=== PATIENT | male | born 1960 ===

== ENCOUNTER 2023-09-14 01:28 | Inpatient (IN) ==
[2023-09-14] MEDS ORDERED: Albuterol/Ipratropium NEB.SOL (2.5/0.5 MG) 3 ML NEB.SOLN INH PRN ×2 (03:12→07:01)
[2023-09-14] MEDS ORDERED: Albuterol (2.5 MG) 0.5 % CONC 0.5 ML NEB.SOLN INH PRN (03:13)
[2023-09-14 04:11] LABS: Resp Rate 12
[2023-09-14 04:14] LABS: PCO2 Arterial 31 mmHg (35-45); PO2 Arterial 139 mmHg (80-100)
[2023-09-14 04:40] LABS: ABS Lymphocytes 0.5 10^3/uL (1.0-4.8); ABS Monocytes 0.1 10^3/uL (0.0-1.1); ABS Neutrophils 7.1 10^3/uL (1.5-7.6); Hemoglobin 10.9 g/dL (13.2-16.3); Mean Corpuscular Hemoglobin 31.1 pg (27-33); Mean Corpuscular Hgb Conc 34.1 g/dL (31-36); Mean Corpuscular Volume 91.2 fL (80-97); Mean Platelet Volume 8.2 fL (7.5-11.2); Nucleated Red Blood Cells % 0.1 %/100WBC (0.0-0.8); Platelet Count 202 10^3/uL (150-450); Red Blood Count 3.51 10^6/uL (4.06-5.63); Red Cell Distribution Width 15.2 % (12-17); White Blood Count 7.7 10^3/uL (3.6-10.2)
[2023-09-14 04:57] LABS: Calcium 8.7 mg/dL (8.6-10.3); Creatinine, Serum 9.36 mg/dL (0.67-1.17); Magnesium 1.8 mg/dL (1.9-2.7); Potassium 5.9 mmol/L (3.5-5.0); eGFR CKD-EPI 5.8 (>60)
[2023-09-14] MEDS ORDERED: Albuterol/Ipratropium NEB.SOL (2.5/0.5 MG) 3 ML NEB.SOLN INH SCH ×3 (07:00→19:00)
[2023-09-14] MEDS: methylPREDNISolone SOD SUCC 40 mg/ml 1 ml VIAL IV SCH (08:11)
[2023-09-14] MEDS ORDERED: Albumin Human 25% 25 GM/100 ML IV PRN (10:24)
[2023-09-14 10:52] LABS: Hepatitis B Surface Antigen Nonreactive (Nonreactive)
[2023-09-14 11:09] LABS: Hepatitis B Surface Ab Immune (Immune)
[2023-09-14] MEDS: FLUTICAS/UMECLI/VILANT 200-62.5-25 MDI (NF) INH SCH (14:56)
[2023-09-14] MEDS: Albuterol 2.5mg/3 ml (0.083%) NEB.SOLN INH SCH ×2 (15:44→21:03)
[2023-09-14] MEDS ORDERED: cefTRIAXone 1 gm/50 mL D5W 1 GM/50 ML BAG IV SCH (22:30)
[2023-09-15] MEDS: Albuterol 2.5mg/3 ml (0.083%) NEB.SOLN INH SCH ×4 (02:52→12:57)
[2023-09-15 04:44] LABS: ABS Lymphocytes 0.8 10^3/uL (1.0-4.8); ABS Monocytes 0.9 10^3/uL (0.0-1.1); ABS Neutrophils 7.8 10^3/uL (1.5-7.6); Hematocrit 29.6 % (38-53); Hemoglobin 10.3 g/dL (13.2-16.3); Lymphocyte % 8.3 %; Mean Corpuscular Hemoglobin 31.3 pg (27-33); Mean Corpuscular Hgb Conc 34.9 g/dL (31-36); Mean Corpuscular Volume 89.6 fL (80-97); Platelet Count 199 10^3/uL (150-450); Red Cell Distribution Width 15.3 % (12-17); White Blood Count 9.6 10^3/uL (3.6-10.2)
[2023-09-15 05:03] LABS: Calcium 8.8 mg/dL (8.6-10.3); Creatinine, Serum 7.61 mg/dL (0.67-1.17); Potassium 5.3 mmol/L (3.5-5.0); eGFR CKD-EPI 7.5 (>60)
[2023-09-15] MEDS: FLUTICAS/UMECLI/VILANT 200-62.5-25 MDI (NF) INH SCH (07:28)
[2023-09-15] MEDS: methylPREDNISolone SOD SUCC 40 mg/ml 1 ml VIAL IV SCH (09:54)
[2023-09-15 12:41] VITALS: BP 115/72
== END 2023-09-15 14:00 | disposition home or self-care (01) | DRG 140 ==
LOC: ICU 03:03
PROVIDERS: ADMIT Student in an Organized Health Care Education/Training Program; ATTEND Student in an Organized Health Care Education/Training Program

== ENCOUNTER 2024-09-16 20:29 | Inpatient (IN) ==
[2024-09-16 21:09] LABS: PCO2 Arterial 36 mmHg (35-45); PO2 Arterial 229 mmHg (80-100)
[2024-09-16] MEDS: methylPREDNISolone SOD SUCC 40 mg/ml 1 ml VIAL IV SCH (21:12)
[2024-09-16] MEDS: Morphine 2 MG/ML SYRINGE IV ONE (21:13)
[2024-09-16] MEDS: Lidocaine PATCH 5% PATCH TRANSDERM SCH (21:31)
[2024-09-16] MEDS: Albuterol/Ipratropium NEB.SOL (2.5/0.5 MG) 3 ML NEB.SOLN INH SCH (21:35)
[2024-09-16] MEDS: cefTRIAXone 1 gm/50 mL D5W 1 GM/50 ML BAG IV SCH (22:37)
[2024-09-16 23:17] LABS: ABS Lymphocytes 0.1 10^3/uL (1.0-4.8); ABS Monocytes 0.1 10^3/uL (0.0-1.1); ABS Neutrophils 6.2 10^3/uL (1.5-7.6); Hematocrit 28.8 % (38-53); Lymphocyte % 2.3 %; Mean Corpuscular Hgb Conc 34.7 g/dL (31-36); Mean Corpuscular Volume 92.1 fL (80-97); Mean Platelet Volume 7.8 fL (7.5-11.2); Platelet Count 201 10^3/uL (150-450); Red Blood Count 3.13 10^6/uL (4.06-5.63); Red Cell Distribution Width 15.1 % (12-17); White Blood Count 6.4 10^3/uL (3.6-10.2)
[2024-09-16] MEDS: Azithromycin 500 mg/250 ml NS 500 MG/250 ML BAG IVPB SCH (23:32)
[2024-09-16 23:41] LABS: Albumin 4.5 g/dL (3.5-5.7); Calcium 8.6 mg/dL (8.6-10.3); Creatinine, Serum 6.79 mg/dL (0.67-1.17); Globulin 2.3 g/dL (2-4); Magnesium 2.4 mg/dL (1.9-2.7); Phosphorus 3.6 mg/dL (2.5-5.0); Potassium 5.1 mmol/L (3.5-5.0); Total Bilirubin 0.6 mg/dL (0.2-1.0); Total Protein 6.8 g/dL (6.4-8.9); eGFR CKD-EPI 8.5 (>60)
[2024-09-17] MEDS: guaiFENesin 100 mg/5 ml LIQ unit dose cup PO PRN (04:59)
[2024-09-17 05:23] LABS: ABS Lymphocytes 0.4 10^3/uL (1.0-4.8); ABS Monocytes 0.2 10^3/uL (0.0-1.1); ABS Neutrophils 5.5 10^3/uL (1.5-7.6); Eosinophil % 0.1 %; Hematocrit 30.3 % (38-53); Hemoglobin 10.4 g/dL (13.2-16.3); Lymphocyte % 7.1 %; Mean Corpuscular Hemoglobin 31.9 pg (27-33); Mean Corpuscular Hgb Conc 34.4 g/dL (31-36); Mean Corpuscular Volume 92.6 fL (80-97); Mean Platelet Volume 7.6 fL (7.5-11.2); Platelet Count 203 10^3/uL (150-450); Red Blood Count 3.27 10^6/uL (4.06-5.63); Red Cell Distribution Width 15.4 % (12-17); White Blood Count 6.2 10^3/uL (3.6-10.2)
[2024-09-17 06:21] LABS: Anion Gap 15 mmol/L (2-16); Blood Urea Nitrogen 36 mg/dL (6-24); CO2 Carbon Dioxide 23 mmol/L (22-32); Calcium 8.6 mg/dL (8.6-10.3); Chloride 97 mmol/L (101-111); Creatinine, Serum 7.71 mg/dL (0.67-1.17); Glucose 124 mg/dL (70-100); Magnesium 2.5 mg/dL (1.9-2.7); Sodium 135 mmol/L (135-145); eGFR CKD-EPI 7.3 (>60)
[2024-09-17] MEDS: Albuterol/Ipratropium NEB.SOL (2.5/0.5 MG) 3 ML NEB.SOLN INH SCH (06:53)
[2024-09-17] MEDS: FLUTICAS/UMECLI/VILANT 200-62.5-25 MDI (NF) INH SCH (07:01)
[2024-09-17] MEDS: Mometasone/Formoter 100/5 MDI INH SCH (08:10)
[2024-09-17 12:32] LABS: Phosphorus 6.7 mg/dL (2.5-5.0); Potassium Redraw 5.5 mmol/L (3.5-5.0)
[2024-09-17] MEDS: Ondansetron 4 mg VIAL 2 MG/ML 2 ml VIAL IV PRN (14:19)
[2024-09-17 14:24] LABS: C Reactive Protein 75.83 mg/L (<8.01)
[2024-09-17] MEDS: methylPREDNISolone SOD SUCC 40 mg/ml 1 ml VIAL IV SCH (14:27)
[2024-09-17] MEDS: SODIUM ZIRCONIUM CYCLOSILICATE 10 GM PACKET PO ONE (16:32)
[2024-09-17] MEDS: Albuterol/Ipratropium NEB.SOL (2.5/0.5 MG) 3 ML NEB.SOLN INH PRN (20:55)
[2024-09-18 06:15] LABS: ABS Lymphocytes 0.3 10^3/uL (1.0-4.8); ABS Monocytes 0.4 10^3/uL (0.0-1.1); ABS Neutrophils 5.5 10^3/uL (1.5-7.6); Hematocrit 25.9 % (38-53); Hemoglobin 8.9 g/dL (13.2-16.3); Lymphocyte % 5.5 %; Mean Corpuscular Hemoglobin 31.5 pg (27-33); Mean Corpuscular Hgb Conc 34.2 g/dL (31-36); Mean Corpuscular Volume 92.2 fL (80-97); Mean Platelet Volume 7.9 fL (7.5-11.2); Nucleated Red Blood Cells % 0.1 %/100WBC (0.0-0.8); Platelet Count 177 10^3/uL (150-450); Red Blood Count 2.81 10^6/uL (4.06-5.63); Red Cell Distribution Width 15.3 % (12-17); White Blood Count 6.2 10^3/uL (3.6-10.2)
[2024-09-18 06:32] LABS: Calcium 8.3 mg/dL (8.6-10.3); Creatinine, Serum 9.68 mg/dL (0.67-1.17); Magnesium 2.4 mg/dL (1.9-2.7); Potassium 5.1 mmol/L (3.5-5.0); eGFR CKD-EPI 5.5 (>60)
[2024-09-18] MEDS: cefTRIAXone 1 gm/50 mL D5W 1 GM/50 ML BAG IV SCH (08:08)
[2024-09-18 10:03] VITALS: BP 148/88
[2024-09-18] MEDS ORDERED: SODIUM ZIRCONIUM CYCLOSILICATE 10 GM PACKET PO ONE (11:00)
== END 2024-09-18 11:00 | disposition home or self-care (01) | DRG 152 ==
LOC: SUATTDRO 20:29 → ICU 20:29 → MED 09-17 11:12
PROVIDERS: ADMIT Physician Assistant; ATTEND Student in an Organized Health Care Education/Training Program